=== PATIENT | male | born 1990 | race Caucasian/White ===

== ENCOUNTER 2019-05-23 07:21 | Inpatient (IN) ==
[2019-05-23 09:00] LABS: BASO# 0.06 X1000 (0.0-0.2); BASO% 1.4 % (0.0-0.8); EOS# 0.06 X1000 (0.0-0.7); EOS% 1.4 % (0.0-10.0); HEMATOCRIT 39.1 % (42.0-52.0); HEMOGLOBIN 13.8 g/dL (14.0-18.0); LYMPH# 1.43 X1000 (1.2-3.4); LYMPH% 33.9 % (20.5-51.1); MCH 29.9 PG (27-31); MCHC 35.3 g/dL (33-37); MCV 84.8 FL (81-99); MONO# 0.48 X1000 (0.11-0.59); MONO% 11.4 % (1.7-9.3); NEUT# 2.19 X1000 (1.4-6.5); NEUT% 51.9 % (42.2-75.2); PLT 174 X1000 (130-400); RBC 4.61 XMIL (4.7-6.1); RDW 11.7 % (11.5-14.5); WBC 4.22 X1000 (4.8-10.8)
[2019-05-23 09:23] LABS: AGAP 9; ALBUMIN 4.7 g/dL (3.5-5.0); ALKALINE PHOSPHATASE 58 U/L (32-122); BUN 12 mg/dL (8-22); CALCIUM 9.7 mg/dL (8.8-10.2); CHLORIDE 102 mmol/L (98-107); COSMO 276; ESTIMATED GFR > 60; GLUCOSE 102 mg/dL (70-104); GOT 15 U/L (10-34); GPT 11 U/L (10-44); POTASSIUM 4.2 mmol/L (3.5-5.1); SODIUM 138 mmol/L (136-145); TCO2 27 mmol/L (25-35); TOTAL BILIRUBIN 0.61 mg/dL (0.20-1.00); TOTAL PROTEIN 7.1 g/dL (6.3-8.3)
[2019-05-23] MEDS ORDERED: PROTONIX PO ONE (09:48)
[2019-05-23] MEDS ORDERED: NS 1,000 ML IV ONE (09:49)
[2019-05-23 10:18] LABS: INR 1.12; PROTIME 14.6 Seconds (11.0-16.0)
[2019-05-23 10:19] LABS: PTT 31.2 Seconds (22.3-41.8)
[2019-05-23] MEDS ORDERED: ZOFRAN IV PRN (11:22)
[2019-05-23] MEDS ORDERED: TYLENOL PO PRN (11:22)
[2019-05-23] MEDS ORDERED: SODIUM CHLORIDE 0.9% INJ SCH (11:30)
--- NOTE | 2019-05-23 11:48 | PROVIDER DOCUMENTATION ---
This chart was entered by Zoila Cantu Scribe, acting as scribe for Lewis Corrales MD. HPI-Abdominal Pain/GI Problem - General Chief Complaint: Rectal Bleeding Stated Complaint: DR SENT - RECTAL BLEEDING Time Seen by Provider: 05/23/19 09:08 Source: patient Allergies/Adverse Reactions: Patient Allergies Allergy/AdvReac Type Severity Reaction Status Date / Time No Known Allergies Allergy Verified 05/23/19 07:27 Home Medications: Home Medication List Medication Instructions Recorded Confirmed Last Taken Type NK [No Home Medications] 05/23/19 05/23/19 Unknown History - History of Present Illness-ABD Nature of Presenting Problems: 29 yom presents to the ed with c/o recta;l bleeding with bm. pt sts had recent colonscopy almost 1 week prior and since has had 15 episodes of rectal bleeding in the last 24hrs has had 5 episodes. pt is pale on exam and sts abdominal cramping is only with BM Abdominal Pain Onset Location: reports: generalized abdomen Pain Radiation: reports: no radiation Quality of Pain: reports: cramping (with bm only) Severity in ED: reports: moderate Onset/Duration: reports: 6 days ago Timing: reports: still present, intermittent Activities at Onset: reports: other (had colonscopy) Exposure to sick contacts?: No Modifying Factors: improves with: nothing. worse with: defecating Associated Symptoms: reports: other (rectal bleeding). denies: back/neck pain, chest pain, cough, fever/chills, malaise, nausea, shortness of breath, vomiting, weakness Last BM: this morning Dark Stools Present?: reports: bright red blood Rectal Bleeding: reports: blood mixed with stool # of Diarrhea Episodes: 5 (last 24 hrs) Rectal Pain: reports: none # of Vomiting Episodes: 0 Emesis Description: reports: none Bruising or Bleeding Gums?: No Similar Symptoms Previously?: Yes (hx of polyps) Recently seen or treated by another doctor?: Yes (seen GI) Review of Systems - Adult - REVIEW OF SYSTEMS - ADULT Constitutional: denies: chills, fever Eyes: reports: no symptoms reported Ears, Nose, Mouth & Throat: reports: no symptoms reported Cardiovascular: denies: chest pain, palpitations Respiratory: denies: shortness of breath, wheezing Gastrointestinal: reports: see HPI, abdominal pain, diarrhea, rectal bleeding. denies: nausea, vomiting Genitourinary: reports: no symptoms reported Musculoskeletal: denies: back pain, neck pain Integumentary: reports: no symptoms reported Neurological: denies: dizziness/vertigo, headache/migraines Psychiatric: reports: no symptoms reported Endocrine: reports: no symptoms reported Hematologic/Lymphatic: reports: no symptoms reported Allergic/Immunologic: reports: no symptoms reported All Other Systems: Reviewed and Negative Past History - Adult - PAST MEDICAL HISTORY-ADULT Review of Records: reports: Old Records Reviewed, Nursing Assessment Review, Medications Reviewed, Social history reviewed & non-contributory. Major Childhood Illnesses: reports: denies history Cardiovascular: reports: arrhythmia Respiratory: reports: denies history Gastrointestinal: reports: polyps Genitourinary: reports: denies history Musculoskeletal: reports: denies history Hand Dominance: Right Handed Neurological: reports: denies history Psychiatric: reports: anxiety Endocrine/Immune: reports: denies history Other Conditions: reports: denies history - PRIOR SURGERIES/PROCEDURES Surgical/Procedure History: reports: recent surgery, appendectomy, colonoscopy - IMMUNIZATION STATUS Childhood Immunizations: See Nurse Assessment Flu Vaccine: See Nurse Assessment - FAMILY HISTORY Family History: reviewed, not pertinent - SOCIAL HISTORY Smoking: denies Substance Use: alcohol Alcohol Use Frequency: occasionally Living Situation: family Physical Exam-General - PHYSICAL EXAM-ADULT Initial Vital Signs Reviewed: Yes - CONSTITUTIONAL General Appearance: appears well, alert - EYES Eyes: PERRL/EOMI, pale conjunctivae - HEAD, EARS, NOSE, MOUTH & THROAT HENMT: moist mucous membranes - NECK Neck: non-tender, full range of motion, normal inspection - RESPIRATORY Respiratory: lungs clear, no pleuratic chest pain - CARDIOVASCULAR Cardiovascular: normal peripheral pulses, regular rate, rhythm - CHEST (BREASTS) Chest/Breast: deferred - GASTROINTESTINAL (ABDOMEN) Abdominal Exam: normal bowel sounds, non tender, soft, other (cramps only with BM) - GENITOURINARY Male Genitalia: deferred Rectal Exam: deferred, other (got stool sample from pt no rectal exam done) Hemoccult Exam: heme positive stool - LYMPHATIC Lymphatic: no adenopathy - MUSCULOSKELETAL Back Exam: normal inspection, no CVA tenderness, no vertebral tenderness Extremity: normal range of motion, non-tender, normal gait, normal inspection - SKIN Integumentary: warm/dry, pallor - NEUROLOGIC Neurologic: grossly normal - PSYCHIATRIC Psych/Mental Status: normal mood/affect, normal thought content, normal thought process, oriented x 3 Progress - PLAN OF CARE/RESULTS Progress/Plan/Lab Results: Vital Signs - 8 hr 05/23/19 07:24 Temperature 98.0 F Pulse Rate 83 Respiratory Rate 18 Blood Pressure 128/83 O2 Sat by Pulse Oximetry 98 Laboratory Results - last 24 hr 05/23/19 05/23/19 05/23/19 08:35 08:35 08:35 WBC 4.22 L RBC 4.61 L Hgb 13.8 L Hct 39.1 L MCV 84.8 MCH 29.9 MCHC 35.3 RDW Std Deviation 11.7 Plt Count 174 MPV 12.0 H Immature Gran % (Auto) 0.0 Neut % (Auto) 51.9 Lymph % (Auto) 33.9 [place] % (Auto) 11.4 H Eos % (Auto) 1.4 Baso % (Auto) 1.4 H Immature Gran # (Auto) 0.00 Neut # (Auto) 2.19 Lymph # (Auto) 1.43 [place] # (Auto) 0.48 Eos # (Auto) 0.06 Baso # (Auto) 0.06 PT INR PTT (Actin FS) Sodium 138 Potassium 4.2 Chloride 102 Carbon Dioxide 27 Anion Gap 9 BUN 12 Creatinine 1.0 Estimated GFR/1.73 m2 > 60 BUN/Creatinine Ratio 12 Glucose 102 Calculated Osmolality 276 Calcium 9.7 Total Bilirubin 0.61 AST 15 ALT 11 Alkaline Phosphatase 58 Total Protein 7.1 Albumin 4.7 Globulin 2.4 Albumin/Globulin Ratio 2.0 Blood Type O POSITIVE Antibody Screen NEGATIVE 05/23/19 08:35 WBC RBC Hgb Hct MCV MCH MCHC RDW Std Deviation Plt Count MPV Immature Gran % (Auto) Neut % (Auto) Lymph % (Auto) [place] % (Auto) Eos % (Auto) Baso % (Auto) Immature Gran # (Auto) Neut # (Auto) Lymph # (Auto) [place] # (Auto) Eos # (Auto) Baso # (Auto) PT 14.6 INR 1.12 PTT (Actin FS) 31.2 Sodium Potassium Chloride Carbon Dioxide Anion Gap BUN Creatinine Estimated GFR/1.73 m2 BUN/Creatinine Ratio Glucose Calculated Osmolality Calcium Total Bilirubin AST ALT Alkaline Phosphatase Total Protein Albumin Globulin Albumin/Globulin Ratio Blood Type Antibody Screen Orders Category Date Time Status Saline Loc NOW Care 05/23/19 08:07 Active CBC WITH ELECTRONIC DIFF [HEME] Stat Lab 05/23/19 08:35 Completed COMPREHENSIVE METABOLIC PANEL [CHEM] Stat Lab 05/23/19 08:35 Completed PROTIME WITH INR [COAG] Stat Lab 05/23/19 08:35 Completed PTT [COAG] Stat Lab 05/23/19 08:35 Completed TYPE & SCREEN [BBK] Stat Lab 05/23/19 08:35 Completed 0.9% Sodium Chloride Inj [Ns] 1,000 ml Med 05/23/19 09:49 Active IV 100 mls/hr Pantoprazole [Protonix] Med 05/23/19 09:48 Discontinued 40 mg PO NOW ONE Result Diagrams: 05/23/19 08:35 05/23/19 08:35 - REASSESSMENT Reassessment #1 Time Reassessed: 10:55 Status: unchanged - CONSULTS/PCP/HOSPITALIST Notification #1 *Consult/PCP/Hospitalist*: dr watts Time Discussed: 09:47 Reason/Comments: wants pt admitted Consult Disposition: Will see in ED #2 Consult: hospitalist Time Discussed: 10:55 ([facility] ACCEPTS) Consult Disposition: Admit Departure - Departure Date of Disposition Decision: 05/23/19 Time of Disposition Decision: 11:48 DIAGNOSIS: Lower GI bleeding Disposition: ADMITTED INPATIENT 09 Certified Medical Emergency: Emergent Condition: Fair Referrals and Follow-Ups: Murphy Bal MD [Primary Care Provider] - - Critical Care Note This patient required my direct & personal management of CC.: No Attestation - Physician/ AKIN Attestation Patient care was provided by Advanced Practice Provider:: No The physician spent face to face time with patient:: Yes Advanced Practice Provider documentation review:: Supervising physician onsite and consulted in the evaluation and care of this patient. The physician did have a face to face encounter with the patient. This chart was documented by the indicated scribe, (Zoila Cantu Scribe) and accurately reflects the services I performed and decisions made by me, Sm Lewis queen MD, as attested by the provider's signature.
--- NOTE | 2019-05-23 11:54 | Diag Imaging Result Doc PS360 ---
EXAM: FLAT/UPRIGHT ABD/1 VIEW CHEST 05/23/2019 HISTORY: gib TECHNIQUE: Portable upright chest and flat and upright abdomen COMMENT: There is no evidence of organomegaly or mass. There are apparent stones in the left renal collecting system. The bowel gas pattern is nonspecific and there is no evidence of obstruction. The stomach is not distended. There are no previous studies available for comparison. There is no evidence of acute cardiac or pulmonary disease. IMPRESSION: No evidence of acute disease in the chest. Nonspecific abdomen. Electronically signed by Jose Alfredo Peralta 05/23/2019 11:51 AM
[2019-05-23 12:00] LABS: IRON SATURATION 33 %; TIBC 365 ug/dL; TOTAL IRON 122 ug/dL (53-167); UNBOUND IRON 243 ug/dL (112-346)
[2019-05-23 12:24] LABS: FERRITIN 166 ng/mL (30-400)
[2019-05-23] MEDS: PROTONIX IV SCH (12:43)
[2019-05-23] MEDS: CARAFATE LIQUID PO SCH ×2 (13:53→21:30)
[2019-05-23] MEDS ORDERED: GOLYTELY PO ONE (14:00)
--- NOTE | 2019-05-23 15:42 | HISTORY AND PHYSICAL ---
PRIMARY CARE PROVIDER: Dr. Murphy Bal. PRIMARY BRICK [employer] [place]: Dr. Pearce. CHIEF COMPLAINT: Bloody stools. HISTORY OF PRESENT ILLNESS: Mr. Baljit Gilbert is a 29-year-old, male with a medical history of colon polyps, who most recently had a colonoscopy with a large polypectomy by Dr. Pearce on 05/17/2019, just a few days ago. He was told to do a clear liquid diet for 4 days which he did, and yesterday was supposed to be his soft diet. After he started his soft diet, he started having black stools which turned into bright red blood stools, and he has had at least 20+ so far. He states he does have some cramping that started after his 1st bowel movement last night. His hemoglobin/hematocrit are a little bit low at [address] Pearce is aware of the patient's admission, and we will allow him to have clear liquids for now, n.p.o. after midnight. We will do serial hemoglobin/ hematocrits and transfuse to keep hemoglobin over 8. PAST MEDICAL HISTORY: 1. Rectal bleeding. 2. Hemorrhoids. 3. Colon polyps. 4. Chronic diarrhea. 5. Seasonal allergies. SURGICAL HISTORY: 1. Appendectomy. 2. Colonoscopy twice; the 1st time they found polyps and did polypectomies. The 2nd time was just this past Monday on 05/17 where there was a large polypectomy. SOCIAL HISTORY: Might smoke a cigar once every other month. Alcohol about every 2 weeks. is at the bedside. He works at [employer]. FAMILY HISTORY: Mother had colon polyps as well and thyroid dysfunction. Had an aunt with diabetes. Father with unknown medical history, but he thinks there is nothing wrong. ALLERGIES: No known drug allergies. HOME MEDICATIONS: No known medications. REVIEW OF SYSTEMS: Fourteen point review of systems are complete and all were negative, except for those mentioned above in the HPI. PHYSICAL EXAMINATION: VITAL SIGNS: Temperature 99.0 degrees, heart rate 74, respiratory rate 18, blood pressure 118/79, O2 saturation 99% on room air. GENERAL: Mr. Baljit Gilbert is a 29-year-old, male, who is in no acute distress. He is able to answer questions appropriately. HEENT: Atraumatic, normocephalic. Pupils equal, round, reactive to light. Extraocular movements intact. Mucous membranes are dry. NECK: Trachea midline. CARDIOVASCULAR: S1, S2. Regular rate and rhythm. No rubs, gallops, murmurs. No lower extremity edema. There are +2 dorsalis and radial pulses. Negative JVD or carotid bruits. PULMONARY: Clear to auscultation. Bilateral breath sounds. No accessory muscle use or work of breathing noted. GI: Soft, nontender, nondistended. Positive bowel sounds x4. SKIN: Warm, dry, intact. LABORATORY DATA: White blood cells 4000, hemoglobin 13, hematocrit 39, platelet count 174. INR is 1.12, PTT 31.2. Sodium 138, potassium 4.2, BUN 12, creatinine is 1.0, glucose 102, calcium 9.7. Iron is 122, total iron binding capacity is 365, saturation 33, unsaturated 243, ferritin 166. Bilirubin 0.61, AST 15, ALT 11. CRP 0.22. Albumin is 4.7, B 12 700, folate 25.2. IMAGING: Abdominal x-ray with chest view: No evidence of acute disease in the chest, nonspecific abdomen. ASSESSMENT AND PLAN: 1. Postprocedure gastrointestinal bleeding likely secondary to large polypectomy performed on 05/17, started last night. He will be on Protonix, Carafate, intravenous fluids, clear liquids, nothing by mouth after midnight for intervention tomorrow by Dr. Pearce. He has currently been consulted. 2. History of frequent followups on the colon. 3. Hemorrhoids, chronic diarrhea. 4. Seasonal allergies. 5. Deep venous thrombosis prophylaxis on sequential compression devices. Dictated by IRAJ Marques for Montrell Paulino MD Addendum: Patient seen and examined by myself. Agree with IRAJ note. It reflects my assessment and plan. Patient is being admitted for post procedural GI bleeding. GI has sent him from office. They will do colonoscopy tomorrow. Will provide IV fluids and will monitor patient closely. cc: IRAJ Marques MD [facility]
[2019-05-23 17:53] LABS: HEMATOCRIT 35.2 % (42.0-52.0); HEMOGLOBIN 12.7 g/dL (14.0-18.0)
--- NOTE | 2019-05-23 18:30 | GASTROENTEROLOGY CONSULTATION ---
DATE: 05/23/2019 REQUESTING PHYSICIAN: Dr. Salguero. PRIMARY CARE DOCTOR: Dr. Murphy Bal. REASON FOR CONSULTATION: Rectal bleeding. HISTORY OF PRESENT ILLNESS: Mr. Gilbert is a 29-year-old male who has prior history of colon polyps. He had a colonoscopy done a week ago. At that time, he was found to have a large polyp noted at 35 cm from the anal verge. This polyp was removed successfully, and a tattoo rosa was placed at the site. Postop, the patient did well until last night. He started his birthday yesterday by eating a heavy meal, and after that he started having some abdominal cramping with some new onset of bloody diarrhea. He also had 15 bowel movements which were containing bright red blood. He called me in after-hours, and I told him to come to the ER. I assessed him, and he is hemodynamically stable, but we will need to schedule him for flexible sigmoidoscopy or colonoscopy tomorrow to possibly cauterize the polypectomy site. PAST MEDICAL HISTORY: Colon polyps. PAST SURGICAL HISTORY: Recent colonoscopy, appendectomy. FAMILY HISTORY: Noncontributory. SOCIAL HISTORY: Denies history of alcohol, tobacco, and illicit drugs. He is . His is present at bedside. ALLERGIES: No known drug allergies. MEDICATIONS AT HOME: None. MEDICATIONS IN THE HOSPITAL: Tylenol, normal saline 100 mL/hr, Zofran, Protonix b.i.d., DIET: Patient will be on a clear liquid diet. REVIEW OF SYSTEMS: The patient does complain of feeling weak. He denies any syncopal events. He denies any nausea, vomiting, or vomiting blood. He does have abdominal cramping and watery diarrhea. He denies any chest pain, shortness of breath, dyspnea. Denies any vomiting blood. He denies any use of NSAIDs. Denies any history of any arthritis. Denies any neurologic complaints. Denies any pulmonary complaints. Denies any genitourinary complaints. PHYSICAL EXAM: Vital Signs: Temperature 99, pulse 74, respiratory rate 18, blood pressure 118/79, saturating 98% room air. Body weight of 150 pounds, BMI 20.5 kg/m. General: Moderate built, moderately nourished, lying in bed, in no acute distress. HEENT: Mild pallor. No icterus. Pupils equal, reactive to light. Neck: Supple. Abdomen: Soft, nontender, nondistended. No guarding or rebound. Extremities: No cyanosis, clubbing. Neurologic: Alert, awake, oriented. LABS: Hemoglobin and hematocrit are 13.8 and 39.1, white count of 4.22, platelet count of 174. Sodium is 138, potassium 4.2, chloride 102, bicarb 27, anion gap 9, BUN of 12, creatinine 1, glucose 102. Calcium is 9.7. Iron is 102%, iron saturation 33%. Ferritin of 166. AST 15, ALT 11, alkaline phosphatase 58. Total protein is 7.1, albumin of 4.7. B12 of 700. INR 1.12, PT of 14.6, PTT of 31.2. Abdominal x-ray no evidence of acute disease in the chest and nonspecific abdomen. IMPRESSION AND PLAN: 1. Rectal bleeding, likely post polypectomy bleeding 2. Mild anemia. RECOMMENDATIONS: 1. We will give the patient IV fluids and a clear liquid diet. We will check stool, hematocrit type and cross, and transfuse to keep him at a hematocrit more than 27%. We will prepare him for colonoscopy tomorrow with Dr. Peoples. The risks, benefits, indications, and alternatives were discussed the patient's family and all questions answered. We will keep him on GI prophylaxis with PPIs. 2. The patient will avoid any NSAIDs for now. 3. We will continue to watch him closely.Further recommendations are pending hospital course. The above plans were discussed with the patient and family and all questions answered. I spoke with the primary care team and the ER physician. Please call us with any further questions. cc: MD Murphy Cleveland MD Cesar Garcia-Rodriguez, MD MTDD
[2019-05-23 20:34] LABS: HEMATOCRIT 31.8 % (42.0-52.0)
[2019-05-24] MEDS: PROTONIX IV SCH ×3 (00:30→22:53)
[2019-05-24] MEDS: CARAFATE LIQUID PO SCH ×4 (01:23→20:18)
[2019-05-24 03:09] LABS: HEMATOCRIT 28.8 % (42.0-52.0)
[2019-05-24 06:25] LABS: AGAP 9; ALB/GLOB RATIO 2.2; ALBUMIN 3.9 g/dL (3.5-5.0); ALKALINE PHOSPHATASE 45 U/L (32-122); BUN 8 mg/dL (8-22); CALCIUM 8.4 mg/dL (8.8-10.2); CHLORIDE 104 mmol/L (98-107); COSMO 272; CREATININE 0.7 mg/dL (0.7-1.2); ESTIMATED GFR > 60; GLUCOSE 102 mg/dL (70-104); GOT 12 U/L (10-34); GPT 9 U/L (10-44); MAGNESIUM 1.7 mg/dL (1.5-2.7); POTASSIUM 3.8 mmol/L (3.5-5.1); SODIUM 137 mmol/L (136-145); TCO2 24 mmol/L (25-35); TOTAL BILIRUBIN 0.83 mg/dL (0.20-1.00); TOTAL PROTEIN 5.7 g/dL (6.3-8.3)
[2019-05-24 06:34] LABS: HEMATOCRIT 28.8 % (42.0-52.0); HEMOGLOBIN 9.9 g/dL (14.0-18.0); MCH 29.6 PG (27-31); MCHC 34.4 g/dL (33-37); MONO% 7.4 % (1.7-9.3); MPV 12.2 FL (7.4-10.4); NEUT% 44.9 % (42.2-75.2); PLT 161 X1000 (130-400); RBC 3.35 XMIL (4.7-6.1); RDW 11.7 % (11.5-14.5); WBC 4.71 X1000 (4.8-10.8)
[2019-05-24 06:35] LABS: BASO# 0.04 X1000 (0.0-0.2); BASO% 0.8 % (0.0-0.8); EOS# 0.07 X1000 (0.0-0.7); EOS% 1.5 % (0.0-10.0); IMM GRAN# 0.02 X1000 (0.0-0.04); IMM GRAN% 0.4 % (0.0-0.5); LYMPH# 2.12 X1000 (1.2-3.4); MONO# 0.35 X1000 (0.11-0.59); NEUT# 2.11 X1000 (1.4-6.5)
[2019-05-24] MEDS ORDERED: DIPRIVAN 1% ONE ×3 (06:52→08:27)
[2019-05-24 07:52] LABS: INR 1.21; PROTIME 15.4 Seconds (11.0-16.0)
--- NOTE | 2019-05-24 09:00 | ENDOSCOPY OPERATIVE NOTE ---
[facility] ENDOSCOPY OPERATIVE NOTE , PATIENT: Baljit Gilbert ADM DATE: 05/24/2019 MR #: [id number] : 1990 COLONOSCOPY PROCEDURE REPORT PROCEDURE DATE: 05/24/2019 SURGEON: Jude Peoples MD STATUS: inpatient A&P TECHNICIAN: PREOPERATIVE DIAGNOSIS: The patient is a 29 yr old male here for a colonoscopy due to hematochezia a nd Post-polypectomy bleed, colonic polyp removed by snare polypectomy on 05/17/2019. PROCEDURE PERFORMED: Colonoscopy with control of bleeding MEDICATIONS: Per Anesthesia PREP TYPE: GoLytely
[2019-05-24 10:19] LABS: HEMATOCRIT 32.5 % (42.0-52.0); HEMOGLOBIN 11.4 g/dL (14.0-18.0)
--- NOTE | 2019-05-24 12:35 | PROGRESS NOTE ---
DATE: 05/24/2019 SUBJECTIVE: Patient reports no more episodes of loose stools. No bloody stools. He is feeling better. No abdominal pain. OBJECTIVE: Vital Signs: Temperature 98.1 degrees, heart rate 75, respiratory 20, blood pressure 114/67, and O2 saturation 100% on room air. General: This is a 29-year-old male lying in bed in no acute distress. Cardiovascular: S1, S2 heard. No murmurs, gallops, or rubs. Regular rate and rhythm. Respiratory: Clear bilaterally to auscultation. No work of breathing or using accessory muscles. Abdomen: Soft, nontender to palpation. Bowel sounds present. No organomegaly. Extremities: No clubbing, cyanosis, or edema. Peripheral pulses present in both legs. Neurological: Patient alert and oriented x3. Moves all 4 extremities. LABORATORY DATA: Reviewed. Hemoglobin is 11.4, with normal BMP. ASSESSMENT AND PLAN: Postprocedure GI bleeding secondary to large polypectomy. The patient reports feeling fine now. The colonoscopy from today showed single post polypectomy ulcer that was cauterized with epinephrine. At this point in time, GI is to keep him on clear liquid diet and we will check hemoglobin and hematocrit q.6 hours. If he is feeling fine tomorrow, he can be discharged. cc: Montrell Paulino MD
[2019-05-24 14:57] LABS: HEMATOCRIT 27.6 % (42.0-52.0); HEMOGLOBIN 9.8 g/dL (14.0-18.0)
[2019-05-24 21:27] LABS: HEMATOCRIT 26.4 % (42.0-52.0); HEMOGLOBIN 9.2 g/dL (14.0-18.0)
[2019-05-25] MEDS: CARAFATE LIQUID PO SCH ×2 (01:17→08:50)
[2019-05-25 06:08] LABS: BASO# 0.07 X1000 (0.0-0.2); BASO% 1.6 % (0.0-0.8); EOS# 0.09 X1000 (0.0-0.7); HEMATOCRIT 27.9 % (42.0-52.0); HEMOGLOBIN 9.7 g/dL (14.0-18.0); LYMPH# 1.95 X1000 (1.2-3.4); LYMPH% 44.1 % (20.5-51.1); MCH 29.7 PG (27-31); MCHC 34.8 g/dL (33-37); MCV 85.3 FL (81-99); MONO# 0.45 X1000 (0.11-0.59); MONO% 10.2 % (1.7-9.3); NEUT# 1.86 X1000 (1.4-6.5); NEUT% 42.1 % (42.2-75.2); PLT 153 X1000 (130-400); RBC 3.27 XMIL (4.7-6.1); RDW 11.6 % (11.5-14.5); WBC 4.42 X1000 (4.8-10.8)
[2019-05-25 06:42] LABS: AGAP 13; BUN 6 mg/dL (8-22); CHLORIDE 104 mmol/L (98-107); COSMO 281; ESTIMATED GFR > 60; GLUCOSE 97 mg/dL (70-104); POTASSIUM 3.6 mmol/L (3.5-5.1); SODIUM 142 mmol/L (136-145); TCO2 25 mmol/L (25-35)
[2019-05-25 07:22] VITALS: BP 107/56
[2019-05-25] MEDS ORDERED: ICAR-C PO SCH (09:00)
[2019-05-25] MEDS ORDERED: CENTRUM SILVER PO SCH (09:00)
--- NOTE | 2019-05-26 04:17 | DISCHARGE SUMMARY ---
ADMISSION DATE: 05/23/2019 DISCHARGE DATE: 05/25/2019 ADMITTING DIAGNOSES: 1. Post procedure gastrointestinal bleed. 2. Colon polyps. 3. Hemorrhoids. 4. Chronic diarrhea. 5. Seasonal allergies. DISCHARGE DIAGNOSES: 1. Gastrointestinal bleed, resolved. 2. Colon polyps. 3. Hemorrhoids. 4. Chronic diarrhea. 5. Seasonal allergies. PROCEDURES AND FINDINGS: Colonoscopy performed by Dr. Jude Peoples performed on 05/24/2019 showed a single nonbleeding and clean-based ulcer measuring 9 mm was found located 30 cm from the point of entry. A single nonbleeding ulcer was measuring 8 mm, surrounding edema and a pigmented spot was found located 30 cm from the point of entry at the polypectomy site. 2 mm of epinephrine 1:10,000 was injected around the site. Cautery was applied to the site with monopolar probe. There was also tattoo noted in same area. Retroflex views revealed no abnormalities. CONSULTS: Dr. Reggie Pearce and Dr. Jude Peoples. HOSPITAL COURSE: Mr. Baljit Gilbert is a 29-year-old male with a history of colon polyps. He recently had a colonoscopy by Dr. Pearce on 05/17/2019, and he had a large polypectomy. He was told to be on a clear liquid diet for 4 days, which he did and then he could be on a soft diet. When he started his soft diet, he started off with a large diet for his birthday. He then started having black stools that turned into bright red stools. He started having abdominal pain. He started having lots of cramping. He then decided to come to the ER. Initial hemoglobin and hematocrit were 13.8 and 39.1. They did drop as low as 9.9 and 28.8 prior to per his procedure. However, after his procedures they are now remaining around 9.7 and 27.9. The patient is not having any more bloody stools. He is able to tolerate p.o. He is going to remain on a clear liquid diet and to following up with Dr. Pearce in the office. He is supposed to call Dr. Pearce's office and follow up and schedule an appointment. He also needs to call and schedule an appointment with Dr. Bal. DISCHARGE LABORATORY DATA: White blood cell count 4.42, hemoglobin 9.7, hematocrit 27.9, platelet count 153. Sodium 142, potassium 3.6, chloride 104, carbon dioxide 25, anion gap 13, BUN 6, creatinine 1.0, estimated GFR greater than 60, glucose 97, calcium 9. DISCHARGE MEDICATIONS: 1. Protonix 40 mg p.o. daily. 2. Carafate 1 g p.o. q.6 hours. DISCHARGE DIET: Continue clear liquid diet as ordered by Dr. Pearce until following up with him. DISCHARGE ACTIVITY: Resume normal activity. DISCHARGE DISPOSITION AND INSTRUCTIONS: Resume self-care. Discharge home. Follow up with Dr. Pearce and Dr. Murphy Bal. Please call to schedule these appointments next week. The patient is to avoid all NSAID medications. He is to avoid smoking, alcohol or any drug abuse. 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 Dictated by IRAJ Dobbs for Montrell Paulino MD Addendum: Patient seen and examined by myself. Agree with IRAJ note. It reflects my assessment and plan. Patient is being discharged in stable condition. Will be seen by PCP in a week and by GI as well. cc: MD Reggie Ch MD Brian R. James, MD MTDD
== END 2019-05-25 10:36 | disposition home or self-care (01) | DRG 920 ==
LOC: ED 07:21 → EDIPHOLD 07:22 → 2N 23:20
PROVIDERS: ATTEND Internal Medicine
PROC: EN.HEAT (2019-05-24 08:25)